=== PATIENT | male | born 2000 | race Caucasian/White ===

== ENCOUNTER 2018-06-11 14:44 | Emergency (ER) | payer SELFPAY ==
[~2018-06-11] VITALS: Ht 167.6 cm; Wt 77.0 kg
[2018-06-11] MEDS ORDERED: LIDOCAINE HCL 1% 20ML VIAL (Pyxis) INJ INFIL ONE (15:00)
[2018-06-11] MEDS ORDERED: HYDROCODONE/ACETAMINOPHEN 5/325MG TABLET PO ONE (18:00)
[2018-06-11 18:14] VITALS: BP 130/68
== END 2018-06-11 18:14 | disposition home or self-care (01) ==
LOC: ER 14:49
DX: L60.0 Ingrowing nail (principal)
CPT/HCPCS: 99282; J3490